=== PATIENT | male | born 1940 | race Caucasian/White ===

== ENCOUNTER 2017-08-26 23:07 | Emergency (ER) | payer MEDICARE, BC ==
[~2017-08-26] VITALS: Ht 188 cm; Wt 96.6 kg
--- NOTE | 2017-08-26 23:24 | NUR ---
BIBSELF, AMBULATORY TO ER BED 7 WOUNDCHECK NONHEALING WOUND RT ROGERS, SCRATCHED LEG X1 WK AGO NOTICE RLE MORE SWOLLEN TODAY. PT AOX3 RR EVEN AND UNLABORED. NO SOB NOTED. NAD NOTED. NO NVD AT THIS TIME. PT GOWNED. WAITING FOR MD TURNER.
--- NOTE | 2017-08-27 00:18 | NUR ---
RADIOLOGY AT BEDSIDE FOR XRAY
[2017-08-27] MEDS ORDERED: TDAP [DIPH/PERTUSSIS/TET] 0.5 ML VIAL IM ONE ×3 (00:30→00:58)
--- NOTE | 2017-08-27 00:32 | NUR ---
RM AT BEDSIDE
[2017-08-27] MEDS ORDERED: CLINDAMYCIN HCL 150 MG CAPSULE PO ONE ×2 (01:00→01:07)
[2017-08-27] MEDS ORDERED: NAPROXEN 250 MG TABLET PO ONE (01:00)
[2017-08-27] MEDS ORDERED: NAPROXEN 250 MG TABLET ONE (01:07)
[2017-08-27 01:13] VITALS: BP 154/79
--- NOTE | 2017-08-27 01:13 | NUR ---
Patient discharged to home in stable condition. Written and verbal after care instructions given. Patient verbalizes understanding of instruction. ambulatory with a steady gait
== END 2017-08-27 01:13 | disposition home or self-care (01) ==
LOC: ER 23:20
DX: L03.115 Cellulitis of right lower limb (principal); C18.9 Malignant neoplasm of colon, unspecified; C61 Malignant neoplasm of prostate
CPT/HCPCS: 73590; 90471; 90715; 93971; 99284; A4606; Z7610

== ENCOUNTER 2017-08-28 12:22 | Emergency (ER) | payer MEDICARE, BC ==
[~2017-08-28] VITALS: Ht 190.5 cm; Wt 96.6 kg
[2017-08-28 12:30] VITALS: BP 127/71
== END 2017-08-28 13:15 | disposition home or self-care (01) ==
LOC: ER 12:23
DX: S81.812A Laceration without foreign body, left lower leg, initial encounter (principal); L03.115 Cellulitis of right lower limb; Z85.038 Personal history of other malignant neoplasm of large intestine; Z85.46 Personal history of malignant neoplasm of prostate; W22.8XXA Striking against or struck by other objects, initial encounter; Y93.89 Activity, other specified; Y92.89 Other specified places as the place of occurrence of the external cause; Y99.8 Other external cause status
CPT/HCPCS: 99282; A4606; Z7610